=== PATIENT | male | born 1950 | race Caucasian/White ===

== ENCOUNTER → 2017-10-15 | Outpatient (CLI) | payer OTHER, MEDICARE ==
[~2017-10-15] MED LIST: ALBU1NEB10 INH; ALBUAER19 INH; CMD5 PO; CO Q 10 PO; FINA5TAB4 PO; FLUT0.0529 NAE; FLUT115A INH; LPR25 PO; MULTTAB58 PO; OMEG-112 PO; OMEP20CA9 PO; PRAV20TA PO; PSEU60TA80 PO; RIZA1TAB7 PO
--- NOTE | 2017-10-15 15:02 | DIAGNOSTIC IMAGING REPORT ---
LOWER EXTREMITY WITHOUT CLINICAL HISTORY: 67 years-old Male presenting with LEFT ANKLE, DELAYED UNION after osteotomy. TECHNIQUE: Multidetector CT of the left ankle was performed without the use of intravenous contrast. IV contrast: None. A dose lowering technique was used consistent with the principles of ALARA (as low as reasonably achievable). COMPARISON: MR from 09/30/2015. CT DOSE (mGy.cm): The estimated cumulative dose is 203.64 mGy.cm. 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 2 lag screw fixation across the posterior subtalar joint. No radiolucency surrounds the screws. Significant erosive changes at the lateral aspect of the posterior subtalar joint involving both the talus and calcaneus. There is osseous fragmentation within the sinus Tarsi. There is a minimally displaced fracture of the anterior process of the calcaneus (series 301 image 52; series 300 image 43) with less than 2 mm of cortical step-off. The distal diminutive fracture fragment is sclerotic suggesting possible osteonecrosis. The ankle mortise is intact. Os peroneum noted. Limited noncontrast evaluation of the soft tissues demonstrates extensive subcutaneous edema and skin thickening which extends distally beyond the ankle mortise most prominently along the lateral dorsal aspect. This may in part relate to postsurgical change. IMPRESSION: 1. Minimally displaced fracture of the anterior process of the calcaneus with less than 2 mm of cortical step-off. 2. Erosive changes at the lateral aspect of the posterior subtalar joint. MR could be considered if there is concern for osteomyelitis. No radiolucency surrounding the 2 lag screw fixation of the posterior subtalar joint to suggest hardware loosening or infection. 3. Osseous fragmentation in the sinus Tarsi. 4. Significant superficial subcutaneous tissue infiltration and skin thickening. Correlate clinically to exclude cellulitis. 5. Electronically signed by: Andreas Ventura M.D. 10/15/2017 3:01 PM Dictated Date/Time: 10/15/2017 2:53 PM
== END | disposition home or self-care (01) ==
LOC: C.CTS 14:36
PROVIDERS: ATTEND Podiatrist Foot & Ankle Surgery
DX: M96.89 Other intraoperative and postprocedural complications and disorders of the musculoskeletal system (principal); Y83.8 Other surgical procedures as the cause of abnormal reaction of the patient, or of later complication, without mention of misadventure at the time of the procedure